=== PATIENT | male | born 1960 | race Two or more races ===

== ENCOUNTER 2017-08-13 19:35 | Inpatient (IN) | payer OTHER ==
[~2017-08-13] VITALS: Ht 180.3 cm; Wt 69.5 kg
[2017-08-13 21:09] LABS: Basophils # (auto) 0.1 uL; Eosinophils # (auto) 0 uL
[2017-08-13 21:11] LABS: Basophils % (auto) 0.4 % (0.0-2.0); Eosinophils % (auto) 0.3 % (0.0-7.0); Hematocrit 18.7 % (41.0-53.0); Lymphocytes # (auto) 1.2 uL; Lymphocytes % (auto) 8.2 % (10.0-50.0); Mean Corpuscular Hemoglobin 30.4 pg (28.0-32.0); Mean Corpuscular Hgb Conc. 33.3 g/dL (32.0-36.0); Mean Corpuscular Volume 91.2 fL (80.0-100.0); Monocytes # (auto) 0.5 uL; Monocytes % (auto) 3.6 % (0.0-12.0); Neutrophils # (auto) 12.8 uL; Neutrophils % (auto) 87.5 % (37.0-80.0); Platelet Count (auto) 350 10^3/uL (140-450); Red Blood Cells 2.05 10^6/uL (4.5-5.90); Red Cell Distribution Width 12.8 % (11.8-14.3); White Blood Cell 14.6 10^3/uL (4.4-10.8)
[2017-08-13 21:15] LABS: Hemoglobin 6.2 g/dL (13.5-17.5)
[2017-08-13] MEDS ORDERED: InsuLIN REG 1unit/0.01ml Soln (100units/ml) IV ONE (21:15)
[2017-08-13] MEDS ORDERED: SODIUM CHLORIDE 0.9% 1,000 ML IV ONE (21:15)
[2017-08-13 21:16] LABS: Alanine Aminotransferase 21 U/L (16-61); Albumin 2.8 g/dL (3.4-5.0); Anion Gap 12 (5-15); Aspartate Aminotransferase 11 U/L (15-37); BUN/Creatinine Ratio 27.7; Blood Urea Nitrogen 46 mg/dL (7-18); Calcium 8.3 mg/dL (8.5-10.1); Carbon Dioxide 18 mmol/L (21-32); Chloride 105 mmol/L (98-107); GFR African American 55 mL/min; GFR Non-African American 46 mL/min; Glucose 383 mg/dL (74-106); Potassium 4.6 mmol/L (3.5-5.1); Sodium 135 mmol/L (136-145)
[2017-08-13 21:21] LABS: Alkaline Phosphatase 59 U/L (45-117); Bilirubin, Total 0.2 mg/dL (0.2-1.0); Total Protein 6.3 g/dL (6.4-8.2)
[2017-08-14] VITALS (15 sets, daily range): BP systolic 104–156; BP diastolic 62–99
[2017-08-14 01:10] LABS: Urine Bacteria NONE SEEN /hpf (None Seen); Urine Blood Negative /uL (Negative); Urine Specific Gravity 1.015 (1.001-1.035); Urine WBC <1 /hpf (0 - 3)
[2017-08-14 01:22] LABS: Alcohol, Urine < 3.0 mg/dL (0-5); Amphetamine Screen, Urine NEGATIVE (NEGATIVE); Barbiturate Scree,Urine NEGATIVE (NEGATIVE); Benzodiazephine Screen, Urine NEGATIVE (NEGATIVE); Cannabinoid Screen, Urine NEGATIVE (NEGATIVE); Cocaine Screen, Urine NEGATIVE (NEGATIVE); Opiate Scree,Urine NEGATIVE (NEGATIVE); Phencyclidine Screen, Urine NEGATIVE (NEGATIVE)
[2017-08-14] MEDS ORDERED: SODIUM CHLORIDE 0.9% 1,000 ML IV SCH (05:48)
[2017-08-14] MEDS ORDERED: ACETAMINOPHEN 325 MG TAB PO PRN (06:00)
[2017-08-14] MEDS ORDERED: cefTRIAXone 1GM/10ml IVPUSH 10 ML IV ONE (06:00)
[2017-08-14] MEDS: ACCU-CHEK COMFORT CURVE STRIP VI SCH ×3 (06:00→18:03)
[2017-08-14] MEDS ORDERED: HYDROcodone-ACET 5/325MG TAB PO PRN (06:00)
[2017-08-14] MEDS ORDERED: ONDANSETRON HCL 4 MG/2 ML VIAL IV PRN (06:00)
[2017-08-14] MEDS ORDERED: MORPHINE SULFATE 10 MG/ML INJ 1ML SDV IV PRN ×2 (06:00)
[2017-08-14] MEDS ORDERED: NITROGLYCERIN 0.4 MG SL TAB SL PRN (06:00)
[2017-08-14] MEDS: InsuLIN REG 1unit/0.01ml Soln (100units/ml) SC SCH ×3 (06:00→18:03)
[2017-08-14] MEDS ORDERED: TEMAZEPAM 15 MG CAP PO PRN (06:00)
[2017-08-14] MEDS ORDERED: DEXTROSE (50%) 50ML SYRG IV PRN (06:00)
[2017-08-14] MEDS: PANTOPRAZOLE 40 MG/10 ML VIAL IV SCH ×2 (09:59→21:47)
[2017-08-14 13:09] LABS: Hemoglobin 8.3 g/dL (13.5-17.5)
[2017-08-14 13:10] LABS: Hematocrit 24.3 % (41.0-53.0)
[2017-08-14] MEDS ORDERED: INFLUENZA QUAD 2017-2018 0.5 ML SYRG IM ONE (13:15)
[2017-08-14] MEDS: SODIUM CHLORIDE 0.9% 1,000 ML IV SCH (15:15)
[2017-08-14 19:42] LABS: Hematocrit 21.9 % (41.0-53.0); Hemoglobin 7.6 g/dL (13.5-17.5)
[2017-08-15] MEDS: ACCU-CHEK COMFORT CURVE STRIP VI SCH ×5 (00:17→23:55)
[2017-08-15] MEDS: InsuLIN REG 1unit/0.01ml Soln (100units/ml) SC SCH ×5 (00:23→23:55)
[2017-08-15 05:00] VITALS: BP 114/71
[2017-08-15] MEDS: SODIUM CHLORIDE 0.9% 1,000 ML IV SCH ×2 (06:22→21:38)
[2017-08-15 07:53] LABS: Basophils # (auto) 0.1 uL; Basophils % (auto) 0.8 % (0.0-2.0); Eosinophils # (auto) 0.5 uL; Eosinophils % (auto) 4.8 % (0.0-7.0); Hematocrit 24.8 % (41.0-53.0); Hemoglobin 8.5 g/dL (13.5-17.5); Lymphocytes # (auto) 2.1 uL; Mean Corpuscular Hemoglobin 30.6 pg (28.0-32.0); Mean Corpuscular Hgb Conc. 34.1 g/dL (32.0-36.0); Mean Corpuscular Volume 89.5 fL (80.0-100.0); Monocytes # (auto) 0.6 uL; Monocytes % (auto) 5.6 % (0.0-12.0); Neutrophils # (auto) 7.1 uL; Neutrophils % (auto) 68.8 % (37.0-80.0); Nucleated Red Blood Cells % 0.3 %; Platelet Count (auto) 325 10^3/uL (140-450); Red Blood Cells 2.78 10^6/uL (4.5-5.90); Red Cell Distribution Width 13.9 % (11.8-14.3); White Blood Cell 10.3 10^3/uL (4.4-10.8)
[2017-08-15 08:17] LABS: Albumin 2.8 g/dL (3.4-5.0); BUN/Creatinine Ratio 14.5; Bilirubin, Total 0.3 mg/dL (0.2-1.0); Total Protein 6.2 g/dL (6.4-8.2)
[2017-08-15 09:00] VITALS: BP 118/73
[2017-08-15] MEDS ORDERED: cefTRIAXone 1GM/10ml IVPUSH 10 ML IV SCH (09:00)
[2017-08-15] MEDS: PANTOPRAZOLE 40 MG/10 ML VIAL IV SCH ×2 (10:05→21:38)
[2017-08-15 13:00] VITALS: BP 122/79
[2017-08-15 14:29] LABS: INR 0.95 (0.9-1.15); Prothrombin Time 10.3 sec (9.37-12.3)
[2017-08-15 17:00] VITALS: BP 122/72
[2017-08-15 22:00] VITALS: BP 116/67
[2017-08-16 05:00] VITALS: BP 131/60
[2017-08-16] MEDS: ACCU-CHEK COMFORT CURVE STRIP VI SCH (06:05)
[2017-08-16] MEDS: InsuLIN REG 1unit/0.01ml Soln (100units/ml) SC SCH ×2 (06:21→11:20)
[2017-08-16 06:53] LABS: Hemoglobin 7.2 g/dL (13.5-17.5)
[2017-08-16 06:55] LABS: Hematocrit 21.1 % (41.0-53.0)
[2017-08-16 06:59] LABS: BUN/Creatinine Ratio 12.9; Calcium 7.9 mg/dL (8.5-10.1)
[2017-08-16] MEDS ORDERED: LIDOCAINE VISCOUS 2% 15ML UD ONE (08:11)
[2017-08-16] MEDS ORDERED: SODIUM CHLORIDE LOCK 10 ML ONE (08:11)
[2017-08-16] MEDS ORDERED: MIDAZOLAM HCL 5 MG/ML-1ML VIAL ONE (08:11)
[2017-08-16] MEDS ORDERED: fentaNYL CITRATE 100 MCG/2 ML VL ONE (08:11)
[2017-08-16] MEDS ORDERED: diphenhdrAMINE HCL 50 MG/1 ML VL ONE (08:11)
[2017-08-16 09:00] VITALS: BP 136/76
[2017-08-16] MEDS: PANTOPRAZOLE 40 MG/10 ML VIAL IV SCH (09:59)
[2017-08-16 22:00] VITALS: BP 133/71
== END 2017-08-16 12:00 | disposition left against medical advice (07) | DRG 377 ==
LOC: ER 19:35 → TELE 19:36 → TELE-WESTW 08-14 07:46
PROVIDERS: ADMIT Nurse Practitioner; ATTEND Internal Medicine
PROC: 30253N1 (ICD-10-PCS; principal; 2017-08-14)
DX: K92.2 Gastrointestinal hemorrhage, unspecified (principal); N17.0 Acute kidney failure with tubular necrosis; E11.21 Type 2 diabetes mellitus with diabetic nephropathy; E11.22 Type 2 diabetes mellitus with diabetic chronic kidney disease; D64.9 Anemia, unspecified; E11.65 Type 2 diabetes mellitus with hyperglycemia; Z53.21 Procedure and treatment not carried out due to patient leaving prior to being seen by health care provider; D72.829 Elevated white blood cell count, unspecified; N18.3 Chronic kidney disease, stage 3 (moderate); G47.00 Insomnia, unspecified; Z91.19 Patient's noncompliance with other medical treatment and regimen; Z23 Encounter for immunization
CPT/HCPCS: 36415; 36430; 70450; 71045; 74176; 80048; 80053; 80061; 80307; 81001; 82140; 82962; 83036; 83690; 83735; 83880; 84484; 85014; 85018; 85025; 85610; 86850; 86900; 86901; 86920; 87040; 93005; 96361; 96374; 96375; C9113; J1815; J2250; J2405